=== PATIENT | male | born 1970 | race Caucasian/White ===

== ENCOUNTER 2025-10-02 21:58 | Emergency (ER) | payer BC, SELFPAY ==
[2025-10-02 22:01] VITALS: BP 164/99
[2025-10-02 22:37] VITALS: BP 135/118
[2025-10-02 22:41] VITALS: BMI 22.8
[2025-10-02] MEDS: NSS 500 IV (23:41)
[2025-10-02] MEDS: ROBITUSSIN AC 10 ML PO (23:45)
[2025-10-02] MEDS: VENTOLIN NEBULES 2.5 MG INH (23:45)
[2025-10-02] MEDS: DECADRON 10 MG IV (23:45)
--- NOTE | 2025-10-02 23:47 | ED.GENMED ---
History of Present Illness
General
Chief Complaint: Breathing Problem
Source: patient
Exam Limitations: none
Time Seen by Provider: 10/02/25 22:36
Nursing documentation reviewed up to this point in time: agreed with
History of Present Illness
History of Present Illness:
Patient presents to ED secondary to continual intermittent nonproductive cough with coughing spells which is taking his breath away over the past 2 weeks. Patient feels extreme short of breath when coughing spells occur. Denies fever or chills.
Denies sore throat. Denies headache. Denies dizziness. Denies loss of sensation or weakness. Denies loss of appetite. Denies diarrhea or vomiting. Denies rash. Denies leg pain or swelling. Denies recent surgery or travel. There are multiple
family members at home, currently experiencing respiratory symptoms. Patient otherwise is healthy without significant medical history. Patient has noted more symptoms at nighttime when he tries to lay down to go to sleep. Patient also feels more
short of breath when he is talking.
Past History
Past History
ED Past Medical History: None
ED Past Surgical History: None
Social History
Tobacco: Non-smoker
Alcohol: None
Review of Systems
Review of Systems
Allergies reviewed?: Yes
All Other Systems: ROS reviewed and negative except as documented in HPI and ROS
Constitutional: Reports no symptoms
EENT: Denies sore throat
Respiratory: Reports cough and trouble breathing
Cardiac: Reports no symptoms; Denies chest pain or palpitations
ABD/GI: Reports no symptoms; Denies vomiting or diarrhea
Musculoskeletal: Reports no symptoms
Skin: Reports no symptoms
Neurological: Reports no symptoms
Phy Exam
Physical Exam
Physical Exam:
Physical Exam
General: mild respiratory distress, not acutely ill. afebrile
Head: nc/at. eomi
Neck: supple. normal range of motion
Heart: s1/s2 regular rate and rhythm
Lungs: mild respiratory distress. diminished breath sounds bilaterally
Abdomen: normal bowel sounds. not tender.
Neuro: alert and oriented x 3. no focal neurological deficits
Skin: no rash
Psychiatric: well kept. interactive and cooperative
Extremities: no edema. no calf tenderness.
Scores
Heart Failure Risk
Heart Failure Risk Score: Not Applicable
Course
Orders/Labs/Results
Orders:
Orders
10/02/25 22:04
EKG [Electrocardiogram (*1)] Urgent
Reason for Study: Chest Pain
EKG- Treatment ONCE
10/02/25 22:59
0.9% Sodium Chloride 500 ml [Nss] 500 ml IV BOLUS
Albuterol Nebs [Ventolin Nebules] 2.5 mg INH R NOW STA
Dexamethasone Sod Phosphate [Decadron] 10 mg IV NOW STA
Guaifenesin/Codeine Solution [Robitussin AC] 10 ml PO NOW STA
10/02/25 23:33
Basic Metabolic Panel Urgent
Bordetella Pertussis IgA,G,M [S] Urgent
COVID-19 Antigen Urgent
Source: Nasal Swab
D-Dimer Urgent
Magnesium Urgent
Respiratory Syncytial Virus Urgent
ANDER Source: Nasal Swab
Specimen Description:
Date Specimen was Collected: 10/02/25
Time Specimen was Collected: 23:27
10/03/25 00:26
CR Chest - 2 Views Urgent
Comment:
Reason For Exam: cough/sob
Abnormal Lab Results
10/02/25
23:33
D-Dimer 0.60 H ug/mlFEU
(0.00-0.50)
Carbon Dioxide 31 H mmol/L
(22-30)
Calcium 10.3 H mg/dl
(8.4-10.2)
10/02/25 23:33
Vital Signs
Initial and Last Documented VS:
Initial Vital Signs
Temp Pulse Resp BP Pulse Ox
97.9 F 91 18 164/99 100
10/02/25 22:01 10/02/25 22:01 10/02/25 22:01 10/02/25 22:01 10/02/25 22:01
Last Documented Vital Signs
Temp Pulse Resp BP Pulse Ox
97.9 F 83 20 135/118 97
10/02/25 22:01 10/02/25 22:44 10/02/25 22:44 10/02/25 22:37 10/02/25 23:47
MDM/Problems Addressed
MDM/Problems Addressed:
Patient reports significant improvement symptoms after treatment. Patient otherwise remains afebrile, hemodynamically stable, without significant respiratory distress. History and exam consistent with likely viral respiratory illness versus acute
bronchitis. As such, patient will be treated symptomatically, with course of Z-Samuel, Medrol Dosepak, along with the inhaler as well as cough syrup to be used for symptomatic relief. Recommended PCP follow-up outpatient, or return to ED with
worsening symptoms.
Pertussis pending
*Pulse Oximetry
SaO2: 97
Oxygen Mode of Delivery: Room air
Patient hypoxic: no
*Critical Care Note
Total Time (30-74mins, 75-104mins- exclusive of procedures): Not Applicable
ED Attending Note
-
Portions of this chart may have been created with voice recognition software.� Occasional wrong word or��sound alike� substitutions may have occurred due to the inherent limitations of voice recognition software.
Discharge Plan
Departure
Patient Disposition: Home (Routine Discharge)
Date of Disposition: 10/03/25
Time of Disposition: 01:40
Patient with high blood pressure during this ER visit?: Yes
Condition: Fair
Discharge Problem:
Acute bronchitis
Instructions: Acute Bronchitis, Adult (DC)
Prescriptions:
New
methylprednisolone [Medrol (Samuel)] 4 mg tablets,dose pack
4 mg PO DAILY Qty: 21 0RF
Rx Instructions:
As directed
albuterol sulfate [Ventolin HFA] 90 mcg/actuation HFA aerosol inhaler
2 puff inhalation Q6H PRN (Reason: cough/sob) Qty: 6.7 0RF
azithromycin [Zithromax Z-Samuel] 250 mg tablet
250 mg PO DAILY 6 Days Qty: 6 0RF
codeine-guaifenesin [Guaifenesin AC] 10-100 mg/5 mL liquid
5 ml PO Q6HPRN PRN (Reason: Cough) 7 Days Qty: 200 0RF
No Action
hydrocodone-acetaminophen 1 TABLET tablet
1 tab PO Q4HPRN PRN (Reason: pain) Qty: 12 0RF
ibuprofen 600 MG tablet
600 mg PO Q6H Qty: 30 0RF
ranitidine HCl [Zantac Maximum Strength] 150 MG tablet
150 mg PO DAILY Qty: 30 0RF
cyclobenzaprine 10 MG tablet
10 mg PO BIDPRN PRN (Reason: spasm) Qty: 14 0RF
prednisone 10 MG tablet
10 mg PO DIRECTED Qty: 45 0RF
Rx Instructions:
5 tab day 1-3, 4 tab day 4-6, 3 tab day 7-9, 2 tab day 10-12, 1 tab day 13-15
diclofenac potassium 50 MG tablet
50 mg PO BID Qty: 20 0RF
lidocaine 1 PATCH adhesive patch,medicated
1 patch topical DAILY Qty: 14 0RF
Rx Instructions:
ON FOR 12 HOURS, OFF FOR 12 HOURS
Referrals:
Abram Pham DO [Family Provider, Family Practice]
Activity Restrictions/Additional Instructions:
As discussed, please follow-up with your primary care physician for reevaluation. Please consider return to ED with worsening symptoms. Your prescriptions been sent electronically [facility] in [place].
Interventions
Interventions:
*Risk Screen - Suicide Last Done: 10/02/25 22:01
*General Assessment Last Done: 10/02/25 22:41
*Neglect/Abuse Screening Last Done: 10/02/25 22:01
*ED- Fall Risk Assessment Last Done: 10/02/25 22:41
*ED COVID-19 Vaccine History Last Done: 10/02/25 22:41
*ED Influenza Vaccine History Last Done: 10/02/25 22:41
*Nursing Disposition Last Done: 10/03/25 02:09
ED- Cardiac Assessment Last Done: 10/02/25 22:44
ED- Pulmonary Assessment Last Done: 10/02/25 22:44
Discharge Date and Time
Discharge Date/Time: 10/03/25 02:12
Print Language: FRISIAN
[2025-10-03 00:09] LABS: Blood Urea Nitrogen 18 mg/dl (9-20); Calcium 10.3 mg/dl (8.4-10.2); Carbon Dioxide 31 mmol/L (22-30); Chloride 103 mmol/L (98-107); Estimated Creatinine Clearance 105 ml/min; Glucose 94 mg/dl (70-99); Magnesium 1.9 mg/dl (1.6-2.3); Potassium 3.8 mmol/L (3.5-5.1); Sodium 141 mmol/L (135-145); eGFR > 60.00
[2025-10-03 00:10] LABS: D-Dimer 0.60 ug/mlFEU (0.00-0.50)
[2025-10-03 00:29] LABS: COVID-19 Antigen Negative (Negative)
== END 2025-10-03 02:12 | disposition home or self-care (01) ==
LOC: EMR 21:58
PROVIDERS: EMERGENCY PHYSICIAN Emergency Medicine; FAMILY PHYSICIAN Family Medicine
DX: J20.9 Acute bronchitis, unspecified (principal)
CPT/HCPCS: 99283; 94640; 96374; 71046; 80048; 83735; 85379; 86615; 87807; 87811; 93005